=== PATIENT | male | born 1960 | race Two or more races ===

== ENCOUNTER → 2016-11-03 | Outpatient (CLI) | payer OTHER ==
--- NOTE | ~2016-11-03 | CT71 ---
[facility] A Service of [facility] RADIOLOGY TEXT RESULTS PATIENT: GABO MADRID LOCATION: [facility] : 64 UNIT #: [id number] AGE: [address]: UTE PRICE SEX: M ORDER DR: [id number] [address] [address] [id number] O MR#: [id number] Acc #: [id number] NAME: GABO MADRID : 1960 SEX: M STUDY DATE/TIME: 11/03/2016 18:05 UNIT: [facility] ROOM: STUDY DESCRIPTION: CT Head Wo Contrast Attending Physician: Ute Price Aprn Referring Physician: Ute Price Aprn Ordering Physician: Physician Non-Staff Primary Care Physician: Ute Price Aprn MEDICAL IMAGING REPORT This report is preliminary unless electronic signature is present EXAM Head CT no contrast, 11/03/2016 PROCEDURE Axial unenhanced head CT. This CT exam was performed with one or more of the following radiation dose reduction techniques: automatic exposure control, adjustment of mA and/or kV according to patient size, and iterative reconstruction. COMPARISON None CLINICAL HISTORY Blurred vision and intermittent headache for 8 months with also report of some change in left side hearing. COMPARISON None FINDINGS The skull base and calvaria are unremarkable. Brain parenchymal density is normal. There is no hemorrhage or mass or hydrocephalus or extraaxial fluid collection. The extracranial soft tissues are normal. IMPRESSION Normal negative unenhanced head CT. Dictated by... Checo Loo M.D. [facility] A Service of [facility] RADIOLOGY TEXT RESULTS PATIENT: GABO MADRID LOCATION: [facility] : 64 UNIT #: [id number] AGE: [address]: UTE PRICE SEX: M ORDER DR: THIS IS AN ELECTRONICALLY VERIFIED REPORT Checo Loo M.D. at 11/04/2016 5:19 PM KENJI/tim TD: 11/04/2016 13:29 JOB #: [id number] MEDICAL IMAGING REPORT Page 1 of 1 COPY
== END | disposition home or self-care (01) ==
LOC: CCAT 10-13 16:40
DX: H91.92 Unspecified hearing loss, left ear (principal); R51 Headache; H92.02 Otalgia, left ear
CPT/HCPCS: 70450